=== PATIENT | female | born 1940 | race Caucasian/White ===

== ENCOUNTER → 2017-04-03 | Outpatient (CLI) | payer MEDICARE, BC ==
--- NOTE | 2017-04-03 12:05 | P.STRESS ---
- Stress Test Note Stress Test Results/Findings: Exam Performed: stress echo exercise Exam Date: 04/03/17 Reason for Exam: SOB Height: 5 ft 1 in Weight: 79.379 kg Protocol: LUISITO Stage: 2 Duration of Exercise: 4:00 Resting Heart Rate: 79 Resting Blood Pressure: 129/99 Maximum Achieved Heart Rate: 135 Maximum Achieved Blood Pressure: 153/102 85% PMHR: 122 100% PMHR: 144 METS: 5.8 Technologist Comment: Stress Test Results/Findings: Baseline EKG shoinus rhythm with artifacts. EKGs taken during and after the exercise did not reveal any significant changes to suggest ischemia. Echo data: Baseline echo images showed normal wall motion and thickening. Exercise echo images showed augmentation of the wall motion and thickening in all the segments. Final impression: #1. Negative stress test. #2. Negative stress echo
== END | disposition home or self-care (01) ==
LOC: RADNMMAIN 09:55
PROVIDERS: ATTEND Internal Medicine Geriatric Medicine
DX: R06.02 Shortness of breath (principal)
CPT/HCPCS: 93017; 93350

== ENCOUNTER → 2018-01-27 | Outpatient (CLI) | payer MEDICARE, BC ==
--- NOTE | 2018-01-29 10:03 | MM ---
Reason for exam: screening (asymptomatic). Last mammogram was performed 2 years and 7 months ago. History: Patient is postmenopausal, history of other cancer, and is nulliparous. Family history of premenopausal breast cancer in paternal cousin at age 40 and breast cancer in paternal aunt at age 50. Benign stereotactic core biopsy of the right breast, August 24, 1998. Core biopsy of the right breast. Excisional biopsy of the left breast. Took hormonal contraceptives for 2 years beginning at age 27. Physical Findings: A clinical breast exam by your physician is recommended on an annual basis and results should be correlated with mammographic findings. MG 3D Screening Mammo W/Cad Bilateral CC and MLO view(s) were taken. Prior study comparison: July 11, 2015, bilateral MG screening mammo w CAD. March 27, 2014, bilateral MG screening mammo w CAD. There are scattered fibroglandular densities. Previous mammotome biopsy in the right breast. Stable scattered focal asymmetry. ASSESSMENT: Benign, BI-RAD 2 RECOMMENDATION: Routine screening mammogram of both breasts in 1 year.
== END ==
LOC: RADMAMWWP 14:20
PROVIDERS: ATTEND Internal Medicine Geriatric Medicine
DX: Z12.31 Encounter for screening mammogram for malignant neoplasm of breast (principal)
CPT/HCPCS: 77063; 77067

== ENCOUNTER → 2019-09-19 | Outpatient (CLI) | payer MEDICARE | END | disposition home or self-care (01) | LOC: LABWHC1 11:38 | PROVIDERS: ATTEND Surgery Plastic and Reconstructive Surgery | DX: Z11.59 Encounter for screening for other viral diseases (principal) | CPT/HCPCS: 87635 ==

== ENCOUNTER 2019-09-22 10:53 | Day surgery (SDC) | payer BC, MEDICARE ==
[2019-09-21 09:48] VITALS: BMI 31.1
--- NOTE | 2019-09-21 19:45 | P.GSHP ---
History of Present Illness H&P Date: 09/22/19 CHIEF COMPLAINT: Colon polyps HISTORY OF PRESENT ILLNESS: The patient is a 79-year-old female who presents with colon polyps. Lower endoscopy was offered for further evaluation and management. PAST MEDICAL HISTORY: Please see list. PAST SURGICAL HISTORY: Please see list. MEDICATIONS: Please see list. ALLERGIES: Please see list. SOCIAL HISTORY: No illicit drug use FAMILY HISTORY: No reports of Crohn disease or ulcerative colitis. REVIEW OF ORGAN SYSTEMS: CONSTITUTIONAL: No reports of fevers or chills. PHYSICAL EXAM: VITAL SIGNS: Stable GENERAL: Well-developed pleasant in no acute distress. HEENT: No scleral icterus. Extraocular movements grossly intact. Moist buccal mucosa. NECK: Supple without lymphadenopathy. CHEST: Unlabored respirations. Equal bilateral excursions. CARDIOVASCULAR: Regular rate and rhythm. Distal 2+ pulses. ABDOMEN: Soft, nontender, nondistended. MUSCULOSKELETAL: No clubbing, cyanosis, or edema. ASSESSMENT: 1. Colon polyps PLAN: 1. Recommend proceeding with a lower endoscopy Past Medical History Past Medical History: Cancer, GERD/Reflux, Hypertension, Osteoarthritis (OA) Additional Past Medical History / Comment(s): BASAL SKIN CANCER, HX POLYPS, STATES SHE GETS HIVES OR WELTS -UNSURE WHAT CAUSES THIS-TAKES OTC ALLERGY MEDICATION ., OCCASIONAL SOB., ARTHRITIS KNEE, BACK PAIN. History of Any Multi-Drug Resistant Organisms: None Reported Additional Past Surgical History / Comment(s): HX ETOPIC X2, CATARACTS WITH ANESTHESIA, ANAL CYST, BUNIONECTOMY, BACK INJECTIONS , COLONOSCOPY, BREAST BX, D & C., CARPAL TUNNEL (R)., GASTROPLASTY STOMACH STAPLING., EYE SURGERY 2018 Past Anesthesia/Blood Transfusion Reactions: Previous Problems w/ Anesthesia Additional Past Anesthesia/Blood Transfusion Reaction / Comment(s): D & C - HALLUCINATIONS Past Psychological History: Depression Smoking Status: Former smoker Past Alcohol Use History: Rare Additional Past Alcohol Use History / Comment(s): QUIT 1982, SMOKED 1 PACK OR MORE/DAY Past Drug Use History: None Reported - Past Family History Sister(s) Family Medical History: Cancer Additional Family Medical History / Comment(s): SKIN CANCER Medications and Allergies Home Medications Medication Instructions Recorded Confirmed Type Aspirin [Adult Low Dose Aspirin EC] 81 mg PO DIRECTED 09/21/19 09/21/19 History Ergocalciferol [Vitamin D2] 50,000 unit PO DIRECTED 09/21/19 09/21/19 History Levocetirizine Dihydrochloride 5 mg PO DAILY 09/21/19 09/21/19 History [Xyzal] Montelukast [Singulair] 10 mg PO HS 09/21/19 09/21/19 History Omeprazole 20 mg PO DAILY 09/21/19 09/21/19 History Oxybutynin Chloride [Ditropan XL] 10 mg PO DAILY 09/21/19 09/21/19 History Sertraline [Zoloft] 50 mg PO DAILY 09/21/19 09/21/19 History Triamterene/Hydrochlorothiazid 1 cap PO DAILY 09/21/19 09/21/19 History [Dyazide 37.5-25 Capsule] amLODIPine [Norvasc] 5 mg PO HS 09/21/19 09/21/19 History traMADol HCL [Ultram] 50 mg PO Q12HR PRN 09/21/19 09/21/19 History Allergies Allergy/AdvReac Type Severity Reaction Status Date / Time KARINA Inhibitors Allergy Unknown Unknown Verified 09/21/19 09:41
[~2019-09-22 10:53] MED LIST: LACTATED RINGERS 1,000 ML IV SCH
[2019-09-22 11:19] VITALS: TEMP 98
[2019-09-22] MEDS ORDERED: LIDOCAINE 1% (10MG/ML) FOR IV START INTRADERMA ONE (11:25)
[2019-09-22] MEDS ORDERED: PROPOFOL 10 MG/ML 20 ML VIAL IV ONE (12:30)
[2019-09-22] MEDS ORDERED: LIDOCAINE 1% INJ 10MG/ML (20 ML MDV) ONE (12:30)
[2019-09-22] MEDS ORDERED: GLYCOPYRROLATE 0.2 MG/ML 2 ML VIAL ONE (12:30)
--- NOTE | 2019-09-22 12:59 | P.HPADDEND ---
H&P Addendum H&P Addendum Date: 09/22/19 Patient reports previous polyps of the rectum and colon. Recommend lower endoscopy with polypectomy
--- NOTE | 2019-09-22 13:04 | P.PCN ---
Date of Procedure: 09/22/19 Description of Procedure: PREOPERATIVE DIAGNOSIS: Personal history of colon polyps POSTOPERATIVE DIAGNOSIS: Tubular adenoma hepatic flexure Tubular adenoma of rectum Tubal adenoma ileocecal valve Sigmoid diverticulosis with partial obstruction descending colon OPERATION: Colonoscopy to the ileocecal valve and appendiceal orifice. Colonoscopy with cold forceps biopsies SURGEON: Mari Thompson MD. ANESTHESIA: MAC. INDICATIONS: The patient is an 79-year-old male who presents personal history of colon polyps. Last colonoscopy 5 years. Benefits and risks were described and informed consent was obtained. DESCRIPTION OF PROCEDURE: The patient had undergone Suprep. She had been brought into the operating room and laid in the left lateral decubitus position. After adequate intravenous sedation, the rectum was examined with 2% lidocaine jelly. No external hemorrhoids were encountered. The rectal tone was within normal limits. No lesions were palpated in the rectal vault. Initially an adult colonoscope was used however a tight stricture of the descending colon was identified. The s cope was exchanged for pediatric colonoscope. An Olympus colonoscope was advanced until the ileocecal valve and appendiceal orifice were clearly viewed. The prep was excellent. Sigmoid diverticulosis was encountered with stricture along the descending colon. Multiple colonic polyps were found and removed with cold forceps biopsy. No evidence of focal colitis was found. Retroflexion of the scope demonstrated grade 1 internal hemorrhoids without active bleeding or inflammation. The colon was desufflated. The patient had tolerated the procedure well. Withdrawal time was over 6 minutes. FINDINGS: Aronchick preparation quality scale 1 (1-5) Internal hemorrhoids, grade 1 No external hemorrhoids No arteriovenous malformations. Sigmoid diverticulosis with stricture descending colon requiring pediatric colonoscope Removal of 3 polyps from the proximal, mid transverse colon and descending colon: - Cold forceps biopsy at 10 cm from the anal verge, 4 mm polyp, rectal polyp - Cold forceps biopsy at hepatic flexure, 5 mm polyp. - Cold forceps biopsy at ileocecal valve, 4 mm polyp. No focal colitis. RECOMMENDATIONS: Repeat colonoscopy in 3 years, 2022 Plan - Discharge Summary New Discharge Prescriptions: Continue Levocetirizine Dihydrochloride [Xyzal] 5 mg PO DAILY amLODIPine [Norvasc] 5 mg PO HS Ergocalciferol [Vitamin D2 (DRISDOL)] 50,000 unit PO DIRECTED Montelukast [Singulair] 10 mg PO HS Oxybutynin Chloride [Ditropan XL] 10 mg PO DAILY Omeprazole 20 mg PO DAILY Sertraline [Zoloft] 50 mg PO DAILY Triamterene/Hydrochlorothiazid [Dyazide 37.5-25 Capsule] 1 cap PO DAILY traMADol HCL [Ultram] 50 mg PO Q12HR PRN PRN Reason: Pain Aspirin [Adult Low Dose Aspirin EC] 81 mg PO DIRECTED Discharge Medication List Aspirin [Adult Low Dose Aspirin EC] 81 mg PO DIRECTED 09/21/19 [History] Ergocalciferol [Vitamin D2 (DRISDOL)] 50,000 unit PO DIRECTED 09/21/19 [History] Levocetirizine Dihydrochloride [Xyzal] 5 mg PO DAILY 09/21/19 [History] Montelukast [Singulair] 10 mg PO HS 09/21/19 [History] Omeprazole 20 mg PO DAILY 09/21/19 [History] Oxybutynin Chloride [Ditropan XL] 10 mg PO DAILY 09/21/19 [History] Sertraline [Zoloft] 50 mg PO DAILY 09/21/19 [History] Triamterene/Hydrochlorothiazid [Dyazide 37.5-25 Capsule] 1 cap PO DAILY 09/21/19 [History] amLODIPine [Norvasc] 5 mg PO HS 09/21/19 [History] traMADol HCL [Ultram] 50 mg PO Q12HR PRN 09/21/19 [History] Follow up Appointment(s)/Referral(s): Mari Thompson MD [STAFF PHYSICIAN] - 10/18/19 Patient Instructions/Handouts: Colorectal Polyps (GEN), Diverticulosis Diet (GEN), Diverticulosis (DC) Activity/Diet/Wound Care/Special Instructions: Repeat colonoscopy in 3 years, 2022 Discharge Disposition: HOME SELF-CARE
[2019-09-22 13:30] VITALS: BP 125/79; PULSE 68; RESP 18
== END 2019-09-22 13:35 | disposition home or self-care (01) ==
LOC: ORWHC2ENDO 10:53
PROVIDERS: ATTEND Surgery Plastic and Reconstructive Surgery
DX: Z12.11 Encounter for screening for malignant neoplasm of colon (principal); D12.3 Benign neoplasm of transverse colon; D12.0 Benign neoplasm of cecum; D12.8 Benign neoplasm of rectum; K57.30 Diverticulosis of large intestine without perforation or abscess without bleeding; K64.0 First degree hemorrhoids; K56.609 Unspecified intestinal obstruction, unspecified as to partial versus complete obstruction; K21.9 Gastro-esophageal reflux disease without esophagitis; I10 Essential (primary) hypertension; M19.90 Unspecified osteoarthritis, unspecified site; Z85.828 Personal history of other malignant neoplasm of skin; M17.10 Unilateral primary osteoarthritis, unspecified knee; Z98.49 Cataract extraction status, unspecified eye; Z97.2 Presence of dental prosthetic device (complete) (partial); Z86.010 Personal history of colon polyps; Z98.84 Bariatric surgery status; Z98.890 Other specified postprocedural states; F32.9 Major depressive disorder, single episode, unspecified; Z87.891 Personal history of nicotine dependence; Z80.8 Family history of malignant neoplasm of other organs or systems; Z79.82 Long term (current) use of aspirin; Z79.899 Other long term (current) drug therapy; Z88.8 Allergy status to other drugs, medicaments and biological substances
CPT/HCPCS: 88305; 45380; J2001; J2704

== ENCOUNTER → 2019-12-20 | Outpatient (CLI) | payer MEDICARE ==
--- NOTE | 2019-12-22 13:41 | CT ---
EXAMINATION TYPE: CT abdomen w con DATE OF EXAM: 12/20/2019 COMPARISON: None HISTORY: Unspecified intestinal obstruction CT DLP: 596.60 mGycm Automated exposure control for dose reduction was used. TECHNIQUE: Helical acquisition of images was performed from the lung bases through the top of iliac crest to include entire abdomen. CONTRAST: Performed with Oral Contrast and with IV Contrast, patient injected with 100 ml mL of Isovue 300. FINDINGS: LUNG BASES: Normal. LIVER/GB: Normal liver. Cholelithiasis. No intrahepatic or extrahepatic biliary ductal dilatation. PANCREAS: Normal. SPLEEN: Normal. ADRENALS: Normal. KIDNEYS: Renal cyst, peripelvic cysts, and too small to characterize hypodense lesions bilaterally. T here is no hydronephrosis or proximal hydroureter. BOWEL: There is oral contrast within the distal esophagus. There is postsurgical state change of the stomach likely related to prior gastric bypass surgery, with oral contrast filling both lumens of th e stomach. The visualized bowel demonstrates no evidence of obstruction or thickening. LYMPH NODES: No lymphadenopathy of the abdomen. OSSEOUS STRUCTURES: Dextrocurvature of the spine and degenerative changes. PERITONEUM: No free air is visualized. No free fluid. There are multiple ventral abdominal fat-conta ining hernias of the upper abdomen. Collectively these hernias are immediately adjacent to each other with a fascial defect up to 6.7 cm transverse, and spanning 8.7 cm craniocaudal. The largest of the adjacent hernia sac measures 4.7 x 3.5 cm. OTHER: No abdominal aortic aneurysm. IMPRESSION: 1. Post surgical bypass changes of the stomach, with oral contrast filling both lumens. 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 There is no abnormal oral c ontrast extravasation outside of the gastric lumen. 2. Cholelithiasis. 3. Multiple adjacent ventral abdominal fat-containing hernias as above.
== END | disposition home or self-care (01) ==
LOC: RADCTMAIN 12:19
PROVIDERS: ATTEND Internal Medicine Geriatric Medicine
DX: K80.20 Calculus of gallbladder without cholecystitis without obstruction (principal); K46.9 Unspecified abdominal hernia without obstruction or gangrene; K43.9 Ventral hernia without obstruction or gangrene; Z98.84 Bariatric surgery status
CPT/HCPCS: 82565; 84520; 74160; 36415; Q9967

== ENCOUNTER → 2020-01-23 | Outpatient (CLI) | payer MEDICARE ==
--- NOTE | 2020-01-23 15:00 | FL ---
EXAMINATION TYPE: FL barium enema DATE OF EXAM: 01/23/2020 COMPARISON: CT 12/20/2019 HISTORY: Diverticulosis TECHNIQUE: A single contrast barium enema study is performed. FINDINGS: Mill [place] Plate Mill view of the abdomen shows overall non-obstructive bowel gas pattern. Postop changes are noted and there is a spinal curvature, degenerative disc change, vascular calcifications within t he pelvis Patient's colon was filled in a retrograde manner. There was no obstruction to flow. Contra st courses to the level of the splenic flexure. IMPRESSION: No evident stricture within the sigmoid or descending colon, limited exam 14 images obtained, 2 minutes 55 seconds fluoroscopy time
== END | disposition home or self-care (01) ==
LOC: RADFLMAIN 10:29
PROVIDERS: ATTEND Surgery Plastic and Reconstructive Surgery
DX: K57.30 Diverticulosis of large intestine without perforation or abscess without bleeding (principal)
CPT/HCPCS: 74270

== ENCOUNTER → 2021-11-22 | Outpatient (CLI) | payer MEDICARE ==
--- NOTE | 2021-11-22 12:33 | CA ---
Transthoracic Echo Report Name: Robina Del Rio Age: 81 Gender: F : 1940 Exam Date: 11/22/2021 10:52 Exam Location: [facility] Ht (in): 60 Wt (lb): 155 Ordering Physician: Jeb Dudley MD Attending/Referring Phys: Cuprous Chloride Helper Ally Johnston RDCS Procedure CPT: Indications: I34.0 NONRHEUMATIC MITRAL (VALVE) INSUFFICIENCY Cardiac Hx: Technical Quality: Contrast 1: Total Dose (mL): Contrast 2: Total Dose (mL): MEASUREMENTS (Male / Female) Normal Values 2D ECHO LV Diastolic Diameter PLAX 3.6 cm 4.2 - 5.9 / 3.9 - 5.3 cm LV Systolic Diameter PLAX 2.7 cm IVS Diastolic Thickness 0.9 cm 0.6 - 1.0 / 0.6 - 0.9 cm LVPW Diastolic Thickness 0.9 cm 0.6 - 1.0 / 0.6 - 0.9 cm LV Relative Wall Thickness 0.5 RV Internal Dim ED PLAX 3.0 cm LA Volume 76.7 cm??? 18 - 58 / 22 - 52 cm??? M-MODE Aortic Root Diameter MM 2.9 cm LA Systolic Diameter MM 4.2 cm LA Ao Ratio MM 1.5 AV Cusp Separation MM 1.9 cm DOPPLER AV Peak Velocity 111.7 cm/s AV Peak Gradient 5.0 mmHg LVOT Peak Velocity 86.9 cm/s LVOT Peak Gradient 3.0 mmHg MV Area PHT 2.8 cm??? Mitral E Point Velocity 84.9 cm/s Mitral A Point Velocity 84.9 cm/s Mitral E to A Ratio 1.0 MV Deceleration Time 272.5 ms TR Peak Velocity 251.2 cm/s TR Peak Gradient 25.2 mmHg Right Ventricular Systolic Press 29.3 mmHg FINDINGS Left Ventricle Normal Left ventricular size, wall thickness, systolic function with no obvious regional wall motion abnormalities. Normal Left ventricular diastolic filling pattern. Left ventricular ejection fraction is estimated at 55 %. Right Ventricle Normal right ventricular size and function. Right ventricular systolic pressure within normal limits. Right Atrium Normal right atrial size. Left Atrium Mild to moderate left atrial dilatation. Mitral Valve Mild mitral annular calcification. [id number] mitral regurgitation. Aortic Valve Trileaflet aortic valve. Aortic valve sclerosis. Trace aortic regurgitation. Tricuspid Valve Structurally normal tricuspid valve. Mild tricuspid regurgitation. Pulmonic Valve Mild pulmonic regurgitation. Pericardium No pericardial effusion. Aorta Normal size aortic root and proximal ascending aorta. CONCLUSIONS Normal left ventricular ejection fraction 55% Mild to moderate left atrial enlargement Mild mitral annular calcification Mild to moderate mitral regurgitation Mild tricuspid regurgitation RVSP 29 No pericardial effusion Previewed by: Dr. Emmanuel Viveros DO (Electronically Signed) Final Date: 22 November 2021 12:33
== END | disposition home or self-care (01) ==
LOC: RADECHMAIN 10:40
PROVIDERS: ATTEND Internal Medicine Geriatric Medicine
DX: I08.3 Combined rheumatic disorders of mitral, aortic and tricuspid valves (principal)
CPT/HCPCS: 93306

== ENCOUNTER → 2022-04-01 | Outpatient (CLI) | payer MEDICARE ==
--- NOTE | 2022-04-01 12:44 | CT ---
EXAMINATION TYPE: CT abdomen pelvis w con DATE OF EXAM: 04/01/2022 HISTORY: abdominal pain, known hernia CT DLP: 1088mGycm Automated Exposure Control for Dose Reduction was Utilized. CONTRAST: CT scan of the abdomen and pelvis is performed with IV Contrast, patient injected with 70cc mL of Iso vick 300. COMPARISON: CT abdomen December 20, 2019 FINDINGS: LUNG BASES: No significant abnormality is appreciated. LIVER/GB: Irregular intraluminal gallstone redemonstrated. PANCREAS: No significant abnormality is seen. SPLEEN: No significant abnormality is seen. ADRENALS: No significant abnormality is seen. KIDNEYS: Symmetric cortical medullary uptake and excretion with multiple central simple appearing par apelvic cysts redemonstrated bilaterally. No hydronephrosis seen bilaterally. BOWEL: Oral contrast reaches level of the splenic flexure. Surgical change to the stomach is redemons trated. Oral contrast on both portions of stomach suggests staple dehiscence similar to prior. No andria picious small or large bowel dilatation is seen. UTERUS/ADNEXA: Anteverted uterus. LYMPH NODES: No greater than 1cm abdominal or pelvic lymph nodes are appreciated. OSSEOUS STRUCTURES: Scoliosis with multilevel spurring in the thoracolumbar spine. Facet arthropathy is present lower lumbar levels. Severe disc space narrowing lumbosacral junction. OTHER: Redemonstration of several fat-containing ventral wall hernias have a similar appearance to pr ior study adjacent to each other in the midline of the mid abdomen. Neck of hernia roughly 7.1 cm axi al image 36 similar to prior. IMPRESSION: Stable multiple adjacent fat-containing ventral wall hernias are present. No significant change from prior. No new or acute findings are evident.
== END | disposition home or self-care (01) ==
LOC: RADCTMAIN 10:12
PROVIDERS: ATTEND Internal Medicine Geriatric Medicine
DX: K43.9 Ventral hernia without obstruction or gangrene (principal)
CPT/HCPCS: 82565; 84520; 74177; 36415; Q9967 ×2

== ENCOUNTER → 2022-08-01 | Outpatient (CLI) | payer MEDICARE ==
--- NOTE | 2022-08-01 13:43 | CT ---
EXAMINATION TYPE: CT right knee - [facility] Protocol DATE OF EXAM: 08/01/2022 COMPARISON: None HISTORY: pre surgical planning CT DLP: 661 mGycm TECHNIQUE- CT right knee. [facility] Protocol COMPARISON- none FINDINGS-there is bilateral moderate concentric narrowing There is severe narrowing of the medial compartment of the left knee and lateral compartment of the r ight knee. Patellofemoral joint arthropathy noted. Calcifications pelvis are likely vascular. Calcifications involve the uterus may relate to fibroids. Occasional diverticula within the colon. There is postsurgical change involving the left foot. Ankle mortise appears somewhat narrowed along t he medial compartment bilaterally greater on the left correlate clinically. IMPRESSION: 1. Severe osteoarthritis of the right knee
== END | disposition home or self-care (01) ==
LOC: RADCTMAIN 12:49
PROVIDERS: ATTEND Orthopaedic Surgery
DX: M17.11 Unilateral primary osteoarthritis, right knee (principal); M21.061 Valgus deformity, not elsewhere classified, right knee

== ENCOUNTER → 2022-08-14 | Outpatient (CLI) | payer MEDICARE ==
[2022-08-14 16:02] LABS: Partial Thromboplastin Time 26.2 sec (22.0-30.0); Prothrombin Time 10.9 sec (9.0-12.0)
[2022-08-14 21:53] LABS: HCT 40.5 % (37.2-46.3); HGB 13.1 g/dL (12.0-15.0); MCH 29.7 pg (27.0-32.0); MCHC 32.3 g/dL (32.0-37.0); MCV 91.8 fL (80.0-97.0); Mean Platelet Volume 10.2 fL (9.5-12.2); NRBC Per 100 WBC 0 /100 WBCS (0.0-0.0); Platelet Count 271 X 10*3/uL (140-440); RBC 4.41 X 10*6/uL (4.10-5.20); RDW 13.6 % (11.5-14.5); WBC 7.46 X 10*3/uL (4.50-10.00)
[2022-08-15 00:22] LABS: African American GFR (CKD) 49.1 (60.0-200.0); Albumin/Globulin Ratio 1.6 (1.60-3.17); Anion Gap 11.2 mmol/L (10.00-18.00); BUN/Creat Ratio 21.92 Ratio (12.00-20.00); Blood Urea Nitrogen 26.3 mg/dL (9.0-27.0); Calcium 9.5 mg/dL (8.7-10.3); Carbon Dioxide 25.8 mmol/L (20.0-27.5); Globulin 2.5 g/dL (1.6-3.3); Non-African American GFR(CKD) 42.3 (60.0-200.0); Potassium 3.9 mmol/L (3.5-5.5); Total Bilirubin 0.5 mg/dL (0.30-1.20); Total Protein 6.5 g/dL (6.2-8.2)
[2022-08-15 03:29] LABS: Appearance,Urine Clear (Clear); Bilirubin,Urine Negative (Negative); Blood,Urine Negative (Negative); Color,Urine Yellow (Yellow); Ketones,Urine Negative (Negative); Nitrite,Urine Negative (Negative); Specific Gravity,Urine 1.018 (1.001-1.030)
== END | disposition home or self-care (01) ==
LOC: LABPAT 13:45
PROVIDERS: ATTEND Orthopaedic Surgery
DX: Z01.812 Encounter for preprocedural laboratory examination (principal); M17.11 Unilateral primary osteoarthritis, right knee; I45.10 Unspecified right bundle-branch block; I44.4 Left anterior fascicular block; R94.31 Abnormal electrocardiogram [ECG] [EKG]
CPT/HCPCS: 80053; 81003; 85027; 85610; 85730; 87070; 93005

== ENCOUNTER 2023-09-12 16:15 | Emergency (ER) | payer MEDICARE ==
[2023-09-12 16:39] VITALS: RESP 18; TEMP 99.5
--- NOTE | 2023-09-12 17:15 | ED ---
Abdominal Pain HPI - General Chief Complaint: Abdominal Pain Stated Complaint: ABD pain Time Seen by Provider: 09/12/23 17:13 Source: patient, EMS, RN notes reviewed Mode of arrival: EMS Limitations: no limitations - History of Present Illness Initial Comments: 83-year-old female presented to the ER via EMS with a chief complaint of abdominal pain. She states this started around 1 PM today and has been increasing in intensity. She states she had 2 normal bowel movements earlier today. She also reports nausea and vomiting. She has not eaten much today due to the pain. She denies any melena, hematochezia or hematemesis. She denies any fevers, chills, night sweats, cough, congestion, chest pain, shortness of breath, urinary complaints or peripheral edema. - Related Data Home Medications Medication Instructions Recorded Confirmed Aspirin [Adult Low Dose Aspirin EC] 81 mg PO DIRECTED 09/21/19 08/29/22 Montelukast [Singulair] 10 mg PO HS 09/21/19 08/29/22 Omeprazole 20 mg PO DAILY 09/21/19 08/29/22 Sertraline [Zoloft] 50 mg PO DAILY 09/21/19 08/29/22 Triamterene/Hydrochlorothiazid 1 cap PO DAILY 09/21/19 08/29/22 [Dyazide 37.5-25 Capsule] amLODIPine [Norvasc] 5 mg PO HS 09/21/19 08/29/22 oxyBUTYnin chloride [Ditropan XL] 10 mg PO DAILY 09/21/19 08/29/22 Albuterol Sulfate [Albuterol 1 puff PO Q4-6H PRN 08/29/22 08/29/22 Sulfate Hfa] Loratadine [Claritin] 10 mg PO DAILY 08/29/22 08/29/22 Previous Rx's Medication Instructions Recorded Aspirin 81 mg PO BID 30 Days #60 tab 09/05/22 Diclofenac Sodium [Voltaren] 75 mg PO BID 30 Days #60 tab 09/05/22 Docusate [Colace] 100 mg PO BID #60 capsule 09/05/22 HYDROcodone/APAP 5-325MG [[place] 1 - 2 tab PO Q6HR PRN 7 Days #32 09/05/22 5-325] tab Omeprazole 40 mg PO DAILY 30 Days #30 cap 09/05/22 Allergies Allergy/AdvReac Type Severity Reaction Status Date / Time KARINA Inhibitors Allergy Unknown Unknown Verified 09/12/23 16:34 Review of Systems ROS Statement: Those systems with pertinent positive or pertinent negative responses have been documented in the HPI. ROS Other: All systems not noted in ROS Statement are negative. Past Medical History Past Medical History: Cancer, GERD/Reflux, Hypertension, Osteoarthritis (OA) Additional Past Medical History / Comment(s): BASAL SKIN CANCER, HX POLYPS, STATES SHE GETS HIVES OR WELTS -UNSURE WHAT CAUSES THIS-TAKES OTC ALLERGY MEDICATION, OCCASIONAL SOB-HAS INHALER, ARTHRITIS KNEE, BACK PAIN. History of Any Multi-Drug Resistant Organisms: None Reported Additional Past Surgical History / Comment(s): HX ECTOPIC X2, CATARACTS WITH ANESTHESIA, ANAL CYST, BUNIONECTOMY, BACK INJECTIONS , COLONOSCOPY, BREAST BX, D & C., CARPAL TUNNEL (R)., GASTROPLASTY STOMACH STAPLING., EYE SURGERY 2017 AND 2021, Right Knee arthroscopy. Past Anesthesia/Blood Transfusion Reactions: Previous Problems w/ Anesthesia Additional Past Anesthesia/Blood Transfusion Reaction / Comment(s): D & C - HALLUCINATIONS, NO PROBLEMS SINCE Past Psychological History: Depression Smoking Status: Former smoker Past Alcohol Use History: Rare Past Drug Use History: None Reported - Past Family History Sister(s) Family Medical History: Cancer Additional Family Medical History / Comment(s): SKIN CANCER General Exam General appearance: alert, in no apparent distress Respiratory exam: Present: normal lung sounds bilaterally. Absent: respiratory distress, wheezes, rales, rhonchi, stridor Cardiovascular Exam: Present: regular rate, normal rhythm, normal heart sounds. Absent: systolic murmur, diastolic murmur, rubs, gallop, clicks GI/Abdominal exam: Present: soft, tenderness (Right upper quadrant), normal bowel sounds Neurological exam: Present: alert, oriented X3, CN II-XII intact Skin exam: Present: warm, dry, intact, normal color. Absent: rash Course Vital Signs 09/12/23 16:27 Temperature 99.5 F Pulse Rate 100 Respiratory 18 Rate Blood Pressure 132/78 O2 Sat by Pulse 96 Oximetry - Reevaluation(s) Reevaluation #1: 09/12/23 19:55 Case discussed with Mehdi Sanchez GI specialist, Dr. Chavira, who accepts transfer. Medical Decision Making - Medical Decision Making Was pt. sent in by a medical professional or institution (, PA, COURT ORDERLY, urgent care, hospital, or snf...) When possible be specific @ -No Did you speak to anyone other than the patient for history (EMS, parent, family, police, friend...)? What history was obtained from this source @ -No Did you review nursing and triage notes (agree or disagree)? Why? @ -I reviewed and agree with nursing and triage notes Were old charts reviewed (outside hosp., previous admission, EMS record, old EKG, old radiological studies, urgent care reports/EKG's, snf records)? Report findings @ -No old charts were reviewed Differential Diagnosis (chest pain, altered mental status, abdominal pain women, abdominal pain men, vaginal bleeding, weakness, fever, dyspnea, syncope, headache, dizziness, GI bleed, back pain, seizure, CVA, palpatations, mental health, musculoskeletal)? @ -Differential Abdominal Pain Women:Appendicitis, Cholecystitis, diverticulosis, ischemic bowel, pancreatitis, hepatitis, UTI, gastroenteritis, AAA, incarcerated hernia, bowel obstruction, constipation, inflammatory bowel, hepatitis, peptic ulcer disease, splenic infarction, perforated viscus, vulvitis, ovarian torsion, PID, kidney stone, placenta abruption, this is not meant to be an all-inclusive list EKG interpreted by me (3pts min.). @ -As above X-rays interpreted by me (1pt min.). @ -None done CT interpreted by me (1pt min.). @ -None done U/S interpreted by me (1pt. min.). @ -Gallbladder ultrasound significant for cholelithiasis with no acute findings of cholecystitis. Bile duct dilated at 1.2 cm. What testing was considered but not performed or refused? (CT, X-rays, U/S, labs)? Why? @ -None What meds were considered but not given or refused? Why? @ -None Did you discuss the management of the patient with other professionals (professionals i.e. [employer] [facility], COURT ORDERLY, lab, RT, psych nurse, social services technician, federal java developer, teacher, court registry officer, comp field case manager)? Give summary @ -No Was smoking cessation discussed for >3mins.? @ -No Was critical care preformed (if so, how long)? @ -No Were there social determinants of health that impacted care today? How? (Homelessness, low income, unemployed, alcoholism, drug addiction, transportation, low edu. Level, literacy, decrease access to med. care, long term, rehab)? @ -No Was there de-escalation of care discussed even if they declined (Discuss DNR or withdrawal of care, Hospice)? DNR status @ -No What co-morbidities impacted this encounter? (DM, HTN, Smoking, COPD, CAD, Cancer, CVA, ARF, Chemo, Hep., AIDS, mental health diagnosis, sleep apnea, morbid obesity)? @ -None Was patient admitted / discharged? Hospital course, mention meds given and route, prescriptions, significant lab abnormalities, going to OR and other pertinent info. @ -83-year-old female presented to the ER with chief complaint of abdominal pain. History and physical exam completed. Vitals stable. Patient in no signs acute distress and nontoxic-appearing. Patient tender to palpation of right upper quadrant. Normal bowel sounds. Lung sounds clear to auscultation bilaterally. Laboratory studies obtained significant for transaminitis (total bilirubin 3.3, AST 161, ALT 65, alk phos 180). MARIO (BUN 25, creatinine 1.10. WBC 9.3. Urine showing large leukocyte esterases with 7 white blood cells and 5 epithelial cells. Gallbladder ultrasound showing cholelithiasis with no acute findings of cholecystitis. Bile duct dilation of 1.2 cm. Symptomatic treatment in ER. Due to laboratory findings of transaminitis and ultrasound with a dilated bile duct concerning of biliary obstruction, transferred considered as we do not have GI services this weekend. Case discussed with Mehdi Bonilla, GI, who accepts transfer. Patient agreeable for transfer. Patient transferred in stable condition. Case discussed with ED attending, Dr. Daniels. Undiagnosed new problem with uncertain prognosis? @ -No Drug Therapy requiring intensive monitoring for toxicity (Heparin, Nitro, Insulin, Cardizem)? @ -No Were any procedures done? @ -No Diagnosis/symptom? @ -Biliary obstruction/ MAROI Acute, or Chronic, or Acute on Chronic? @ -Acute Uncomplicated (without systemic symptoms) or Complicated (systemic symptoms)? @ -Complicated Side effects of treatment? @ -No Exacerbation, Progression, or Severe Exacerbation? @ -No Poses a threat to life or bodily function? How? (Chest pain, [place], [place], pneumonia, PE, COPD, DKA, ARF, appy, cholecystitis, CVA, Diverticulitis, Homicidal, Suicidal, threat to staff... and all critical care pts) @ -Possibly can lead to sepsis - Lab Data Result diagrams: 09/12/23 16:48 09/12/23 16:48 Lab Results 09/12/23 09/12/23 09/12/23 Range/Units 16:48 16:48 16:48 WBC 9.3 (3.8-10.6) k/uL RBC 4.42 (3.80-5.40) m/uL Hgb 13.5 (11.4-16.0) gm/dL Hct 40.5 (34.0-46.0) % MCV 91.6 (80.0-100.0) fL MCH 30.5 (25.0-35.0) pg MCHC 33.3 (31.0-37.0) g/dL RDW 13.4 (11.5-15.5) % Plt Count 181 (150-450) k/uL MPV 8.2 Neutrophils % 95 % Lymphocytes % 3 % Monocytes % 1 % Eosinophils % 1 % Basophils % 0 % Neutrophils # 8.9 H (1.3-7.7) k/uL Lymphocytes # 0.3 L (1.0-4.8) k/uL Monocytes # 0.1 (0-1.0) k/uL Eosinophils # 0.1 (0-0.7) k/uL Basophils # 0.0 (0-0.2) k/uL Sodium 140 (137-145) mmol/L Potassium 3.5 (3.5-5.1) mmol/L Chloride 108 H (98-107) mmol/L Carbon Dioxide 24 (22-30) mmol/L Anion Gap 8 mmol/L BUN 25 H (7-17) mg/dL Creatinine 1.10 H (0.52-1.04) mg/dL Est GFR (CKD-EPI)AfAm 54 (>60 ml/min/1.73 sqM) Est GFR (CKD-EPI)NonAf 47 (>60 ml/min/1.73 sqM) Glucose 99 (74-99) mg/dL Plasma Lactic Acid Ulises (0.7-2.0) mmol/L Calcium 8.8 (8.4-10.2) mg/dL Total Bilirubin 3.3 H (0.2-1.3) mg/dL AST 161 H (14-36) U/L ALT 65 H (4-34) U/L Alkaline Phosphatase 108 (38-126) U/L Total Protein 6.4 (6.3-8.2) g/dL Albumin 3.5 (3.5-5.0) g/dL Amylase 59 (30-110) U/L Lipase 90 (23-300) U/L Urine Color Light Yellow Urine Appearance Cloudy H (Clear) Urine pH 6.0 (5.0-8.0) Ur Specific [place] 1.014 (1.001-1.035) Urine Protein Negative (Negative) Urine Glucose (UA) Negative (Negative) Urine Ketones Negative (Negative) Urine Blood Negative (Negative) Urine Nitrite Negative (Negative) Urine Bilirubin Negative (Negative) Urine Urobilinogen <2.0 (<2.0) mg/dL Ur Leukocyte Esterase Large H (Negative) Urine RBC 1 (0-5) /hpf Urine WBC 7 H (0-5) /hpf Ur Squamous Epith Cells 5 H (0-4) /hpf Urine Bacteria Rare H (None) /hpf Urine Mucus Rare H (None) /hpf 09/12/23 Range/Units 16:48 WBC (3.8-10.6) k/uL RBC (3.80-5.40) m/uL Hgb (11.4-16.0) gm/dL Hct (34.0-46.0) % MCV (80.0-100.0) fL MCH (25.0-35.0) pg MCHC (31.0-37.0) g/dL RDW (11.5-15.5) % Plt Count (150-450) k/uL MPV Neutrophils % % Lymphocytes % % Monocytes % % Eosinophils % % Basophils % % Neutrophils # (1.3-7.7) k/uL Lymphocytes # (1.0-4.8) k/uL Monocytes # (0-1.0) k/uL Eosinophils # (0-0.7) k/uL Basophils # (0-0.2) k/uL Sodium (137-145) mmol/L Potassium (3.5-5.1) mmol/L Chloride (98-107) mmol/L Carbon Dioxide (22-30) mmol/L Anion Gap mmol/L BUN (7-17) mg/dL Creatinine (0.52-1.04) mg/dL Est GFR (CKD-EPI)AfAm (>60 ml/min/1.73 sqM) Est GFR (CKD-EPI)NonAf (>60 ml/min/1.73 sqM) Glucose (74-99) mg/dL Plasma Lactic Acid Ulises 1.8 (0.7-2.0) mmol/L Calcium (8.4-10.2) mg/dL Total Bilirubin (0.2-1.3) mg/dL AST (14-36) U/L ALT (4-34) U/L Alkaline Phosphatase (38-126) U/L Total Protein (6.3-8.2) g/dL Albumin (3.5-5.0) g/dL Amylase (30-110) U/L Lipase (23-300) U/L Urine Color Urine Appearance (Clear) Urine pH (5.0-8.0) Ur Specific [place] (1.001-1.035) Urine Protein (Negative) Urine Glucose (UA) (Negative) Urine Ketones (Negative) Urine Blood (Negative) Urine Nitrite (Negative) Urine Bilirubin (Negative) Urine Urobilinogen (<2.0) mg/dL Ur Leukocyte Esterase (Negative) Urine RBC (0-5) /hpf Urine WBC (0-5) /hpf Ur Squamous Epith Cells (0-4) /hpf Urine Bacteria (None) /hpf Urine Mucus (None) /hpf - EKG Data -: EKG Interpreted by In EKG Comments: EKG taken at 17: 39 showing sinus tachycardia with a first-degree AV block. Right bundle branch block. No acute ST segment or T wave abnormalities. Ventricular rate 101, NJ interval 219, QRS duration 133, QT/QTc 371/429. - Radiology Data Radiology results: report reviewed, image reviewed Disposition Clinical Impression: Biliary obstruction, MARIO (acute kidney injury) Disposition: OTHER INSTITUTION NOT DEFINED Condition: Stable Referrals: Jeb Dudley MD [Primary Care Provider] - 1-2 days Time of Disposition: 19:58 - Out of Hospital Transfer - Req. Specs Out of Hospital Transfer - Requested Specifics: Other Emergency Center (GI consult)
[2023-09-12] MEDS: SODIUM CHLORIDE 0.9% 500 ML 500 ML IV STA (17:27)
[2023-09-12 17:55] LABS: ALT 65 U/L (4-34); AST 161 U/L (14-36); African American GFR (CKD) 54 (>60 ml/min/1.73 sqM); Albumin 3.5 g/dL (3.5-5.0); Alkaline Phosphatase 108 U/L (38-126); Amylase 59 U/L (30-110); Anion Gap 8 mmol/L; Appearance,Urine Cloudy (Clear); Bacteria,Urine Rare /hpf; Bilirubin,Urine Negative (Negative); Blood Urea Nitrogen 25 mg/dL (7-17); Blood,Urine Negative (Negative); Calcium 8.8 mg/dL (8.4-10.2); Carbon Dioxide 24 mmol/L (22-30); Chloride 108 mmol/L (98-107); Color,Urine Light Yellow; Glucose 99 mg/dL (74-99); Glucose,Urine (UA) Negative (Negative); Ketones,Urine Negative (Negative); Leukocyte Esterase,Urine Large (Negative); Lipase 90 U/L (23-300); Mucus,Urine Rare /hpf; Nitrite,Urine Negative (Negative); Non-African American GFR(CKD) 47 (>60 ml/min/1.73 sqM); Potassium 3.5 mmol/L (3.5-5.1); Protein,Urine Negative (Negative); RBC,Urine 1 /hpf (0-5); Sodium 140 mmol/L (137-145); Specific Gravity,Urine 1.014 (1.001-1.035); Squamous Epithelial Cell,Urine 5 /hpf (0-4); Total Bilirubin 3.3 mg/dL (0.2-1.3); Total Protein 6.4 g/dL (6.3-8.2); Urobilinogen,Urine <2.0 mg/dL (<2.0); WBC,Urine 7 /hpf (0-5)
[2023-09-12 18:04] LABS: Basophils % (A) 0 %; Eosinophils # (A) 0.1 k/uL (0-0.7); Eosinophils % (A) 1 %; HCT 40.5 % (34.0-46.0); HGB 13.5 gm/dL (11.4-16.0); Lymphocytes # (A) 0.3 k/uL (1.0-4.8); Lymphocytes % (A) 3 %; MCH 30.5 pg (25.0-35.0); MCHC 33.3 g/dL (31.0-37.0); MCV 91.6 fL (80.0-100.0); Mean Platelet Volume 8.2; Monocytes # (A) 0.1 k/uL (0-1.0); Monocytes % (A) 1 %; Neutrophils # (A) 8.9 k/uL (1.3-7.7); Neutrophils % (A) 95 %; Platelet Count 181 k/uL (150-450); RBC 4.42 m/uL (3.80-5.40); RDW 13.4 % (11.5-15.5); WBC 9.3 k/uL (3.8-10.6)
--- NOTE | 2023-09-12 18:52 | US ---
EXAMINATION TYPE: US gallbladder DATE OF EXAM: 09/12/2023 COMPARISON: NONE CLINICAL INDICATION: Female, 83 years old with history of RUQ pain; Abd pain with 1 episode of vomiti ng, h/o GB stones TECHNIQUE: Multiple sonographic images of the right upper quadrant are obtained. FINDINGS: EXAM MEASUREMENTS: Liver Length: 16.9 cm Gallbladder Wall: 0.3 cm CBD: 1.2 cm Right Kidney: 9.2 x 3.8 x 4.6 cm Pancreas: Small portion of the pancreatic neck and body is seen. Remainder is obscured by bowel gas shadowing. Liver: wnl Gallbladder: Clustered shadowing calculi measuring up to 1.7 cm. No hydropic change, wall thickening , or surrounding fluid. Evidence for sonographic Anne's sign: no CBD: dilated with no obvious obstruction Right Kidney: wnl IMPRESSION: 1. Cholelithiasis. No ancillary imaging findings of acute cholecystitis. 2. The bile duct is dilated at 1.2 cm. This may be chronic for the patient. Correlate with alkaline p hosphatase and bilirubin levels to exclude biliary obstruction.
[2023-09-12] MEDS: SODIUM CHLORIDE 0.9% 1,000 ML IV STA (20:37)
[2023-09-12 21:18] VITALS: BP 94/53; PULSE 89
== END 2023-09-12 21:01 | disposition other institution (70) ==
LOC: EC 16:15
DX: K83.1 Obstruction of bile duct (principal); N17.9 Acute kidney failure, unspecified; Z87.891 Personal history of nicotine dependence; Z88.8 Allergy status to other drugs, medicaments and biological substances
CPT/HCPCS: 36415; 76705; 80053; 81001; 82150; 83605; 83690; 85025; 93005; 96360; 96361; 99285

== ENCOUNTER → 2023-12-04 | Outpatient (CLI) | payer MEDICARE ==
--- NOTE | 2023-12-28 04:10 | BD ---
EXAMINATION TYPE: Axial Bone Density DATE OF EXAM: 12/04/2023 CLINICAL HISTORY: 83 years old Female. ICD-10 CODE: M81.0 AGE-RELATED OSTEOPOROSIS Height: 60 Weight: 136 FRAX RISK QUESTIONS: Alcohol (3 or more units per day): no Family History (Parent hip fracture): yes Glucocorticoids (More than 3mos): no (Ex: prednisone, prednisolone, methylprednisolone, dexamethasone, and hydrocortisone). History of Fracture in Adulthood: no Secondary Osteoporosis: 1. Type 1 Diabetes: no 2. Hyperthyroidism: no 3. Menopause before 45: no 4. Malnutrition: no 5. Chronic liver disease: no Rheumatoid Arthritis: no Current Tobacco Use: no RISK FACTORS HISTORY OF: Hip Fracture (Right/Left): no Spine Fracture: no History of Wrist Fracture: no Surgery to Spine/Hip(right/left)/Wrist (right/left): no MEDICATIONS: Thyroid Medications: no Osteoporosis Medications: no EXAM MEASUREMENTS: Bone mineral densitometry was performed using the [employer] System. Bone mineral density as measured about the Lumbar spine is: ----- L1-L4(G/cm2): 1.303 T Score Values are as follows: ----- L1: 0.1 ----- L2: 0.9 ----- L3: 2.1 ----- L4: 0.6 ----- L1-L4: 1.0 Z Score Values are as follows: ----- L1: 2.1 ----- L2: 2.9 ----- L3: 4.1 ----- L4: 2.6 ----- L1-L4: 3.0 Bone mineral density has: decrease -12.6 % since study of: 2016 study Bone mineral density about the R hip (g/cm2): 0.784 Bone mineral density about the L hip (g/cm2): 0.865 T Score values are as follows: -----R Neck: -2.1 -----L Neck: -1.8 -----R Total: -1.8 -----L Total: -1.1 Z Score values are as follows: -----R Neck: 0.2 -----L Neck: 0.6 -----R Total: 0.5 -----L Total: 1.1 Bone mineral density has: decrease -19.2 % since study of: 2016 FRAX%s: The graph provided illustrates a 31.5% chance for a major osteoporotic fx and a 21.4% chance for the hips probability for fx in 10 years time. IMPRESSION: Osteopenia (T Score between -2.5 and -1). There is slightly increased risk of fracture and the patient may be considered for treatment. Re-Screen 2-5 years. NOTE: T-SCORE=SD OF THE YOUNG ADULT MEAN.
--- NOTE | 2023-12-30 11:32 | MM ---
Reason for Exam: Screening (asymptomatic). Last mammogram was performed 5 year(s) and 11 month(s) ago. Patient History: Menarche at age 13. Patient has no children. Postmenopausal. Other cancer. Hormonal Contraceptives, starting at age 27 for 2 years. Core Biopsy on the Right side. Excisional Biopsy on the Left side. 08/24/1998, Benign Stereotactic Core Biopsy on the right side. Paternal cousin had breast cancer, age 40. Paternal aunt had breast cancer, age 50. Risk Values: Alejandrina 5 year model risk: 2.6%. NCI Lifetime model risk: 3.5%. Prior Study Comparison: 03/27/2014 Bilateral Screening Mammogram, [facility]. 07/11/2015 Bilateral Screening Mammogram, [facility]. 01/27/2018 Bilateral Screening Mammogram, [facility]. Tissue Density: The breasts are almost entirely fatty. Findings: Analyzed By CAD. Right breast biopsy clip. Right breast: There is no suspicious group of microcalcifications or new suspicious mass. Benign-appearing calcifications right breast. Left breast: There is no suspicious group of microcalcifications or new suspicious mass. Overall Assessment: Benign, BI-RAD 2 Management: Screening Mammogram of both breasts in [address] [facility] will attempt to contact patient to return for supplemental views and ultrasound if indicated. Patient should continue monthly self-breast exams. A clinical breast exam by your physician is recommended on an annual basis. This exam should not preclude additional follow-up of suspicious palpable abnormalities. Note on Alejandrina scores and lifetime risk: 1. A Alejandrina score greater than 3% is considered moderate risk. If this is the case, consider specialist referral to assess eligibility for a risk reducing agent. 2. If overall lifetime risk for the development of breast cancer is 20% or higher, the patient may qualify for future screening with alternating mammogram and breast MRI. Electronically signed and approved by: Nigel Richmond DO
== END | disposition home or self-care (01) ==
LOC: RADMAMWWP 12:39
PROVIDERS: ATTEND Internal Medicine Geriatric Medicine
DX: Z12.31 Encounter for screening mammogram for malignant neoplasm of breast (principal); M81.0 Age-related osteoporosis without current pathological fracture; M85.89 Other specified disorders of bone density and structure, multiple sites; Z78.0 Asymptomatic menopausal state; Z80.3 Family history of malignant neoplasm of breast
CPT/HCPCS: 77063; 77067; 77080